=== PATIENT | male | born 1985 | race Caucasian/White ===

== ENCOUNTER 2019-12-21 20:20 | Emergency (ER) | payer OTHER ==
[2019-12-21] MEDS ORDERED: Bacitracin Oint 1 GM U/D Packet TOP ONE (20:22)
[2019-12-21] MEDS ORDERED: Lidocaine 1% 30 ML SDV INJECT ONE (20:22)
[2019-12-21] MEDS ORDERED: Diphtheria,Pertussis(Acell),Tetanus Vaccine 0.5 ML SDV IM ONE (20:25)
--- NOTE | 2019-12-21 20:31 | EDM.PDOC ---
ED HPI GENERAL MEDICAL PROBLEM - General Chief Complaint: Skin Complaint Stated Complaint: HOOK IN FINGER Time Seen by Provider: 12/21/19 20:27 Source of Information: Reports: Patient History Limitations: Reports: No Limitations - History of Present Illness INITIAL COMMENTS - FREE TEXT/NARRATIVE: Treble hook to right hand 30min [employer]. 2 of 3 barbs lateral 2nd metacarpal - Related Data Allergies Allergy/AdvReac Type Severity Reaction Status Date / Time No Known Allergies Allergy Verified 12/21/19 20:25 Home Meds: Home Meds . [No Known Home Meds] 12/21/19 [History] ED ROS GENERAL - Review of Systems Review Of Systems: Comprehensive ROS is negative, except as noted in HPI. ED EXAM, SKIN/RASH Exam: See Below Exam Limited By: Language Barrier General Appearance: Alert, Mild Distress Eye Exam: Bilateral Eye: EOMI Respiratory/Chest: No Respiratory Distress Cardiovascular: Normal Peripheral Pulses Extremities: Other (fish hook embedded right hand) Neurological: Alert, Oriented, Normal Cognition Psychiatric: Normal Affect Skin: Warm, Dry Location, Skin: Upper Extremity, Right (lateral 2nd metacarpal ) Associated features: Tenderness ED SKIN PROCEDURES - Foreign Body Removal Consent Obtained:: Patient Foreign Body Other Location Comment:: lateral 2nd metacarpal 2 of 3 barbs from trebel hook , Wound area cleansed with NS and Hibaclens Barbs pushe trough skin , cut and hooks removed. Tolerated well no complications Anesthesia Type: Local (1% lidocaine 1ml) Complications:: No Course - Vital Signs Last Recorded V/S: Last Vital Signs Temp 98.7 F 12/21/19 20:23 Pulse 72 12/21/19 20:23 Resp 18 12/21/19 20:23 BP 156/96 H 12/21/19 20:23 Pulse Ox 100 12/21/19 20:23 - Orders/Labs/Meds Orders: Active Orders 24 hr Category Date Time Status Vaccines to be Administered [RC] PER UNIT ROUTINE Care 12/21/19 20:26 Active Meds: Medications Discontinued Medications Generic Name Dose Route Start Last Admin Trade Name Freq PRN Reason Stop Dose Admin Bacitracin 1 dose 12/21/19 20:22 12/21/19 20:31 Bacitracin Oint 1 Gm TOP 12/21/19 20:23 1 dose ONETIME ONE Administration Cephalexin 500 mg 12/21/19 20:48 12/21/19 20:51 Keflex PO 12/21/19 20:49 500 mg ONETIME ONE Administration Diphtheria/Tetanus/Acell Pertussis 0.5 ml 12/21/19 20:25 12/21/19 20:30 Adacel IM 12/21/19 20:26 0.5 ml .ONCE ONE Administration Lidocaine HCl 30 ml 12/21/19 20:22 12/21/19 20:31 Xylocaine-Mpf 1% INJECT 12/21/19 20:23 30 ml ONETIME ONE Administration Departure - Departure Time of Disposition: 20:50 Disposition: Home, Self-Care 01 Condition: Good Clinical Impression: Fish hook injury of finger of right hand Qualifiers: Encounter type: initial encounter Qualified Code(s): S69.91XA - Unspecified injury of right wrist, hand and finger(s), initial encounter - Discharge Information *PRESCRIPTION DRUG MONITORING PROGRAM REVIEWED*: No *COPY OF PRESCRIPTION DRUG MONITORING REPORT IN PATIENT ROJAS: No Forms: ED Department Discharge Additional Instructions: Keep clean and dry wash with soap and water at least 3 times daily antibiotic ointment to area twice daily until healed follow up if redness swelling or drainage keflex 500mg one three times daily for one week alternate tylenol 650mg and ibuprofen 600mg every 4 hours as needed for discomfort Sepsis Event Note - Evaluation Sepsis Screening Result: No Definite Risk - Focused Exam Vital Signs: Vital Signs Temp Pulse Resp BP Pulse Ox 12/21/19 20:23 98.7 F 72 18 156/96 H 100 Date Exam was Performed: 12/22/19 Time Exam was Performed: 06:01 - My Orders Last 24 Hours: My Active Orders 12/21/19 20:26 Vaccines to be Administered [RC] PER UNIT ROUTINE - Assessment/Plan Last 24 Hours: My Active Orders 12/21/19 20:26 Vaccines to be Administered [RC] PER UNIT ROUTINE
[2019-12-21] MEDS ORDERED: Cephalexin 500 MG Cap PO ONE (20:48)
== END 2019-12-21 20:54 | disposition home or self-care (01) ==
LOC: DL.ED 20:20
DX: S60.450A Superficial foreign body of right index finger, initial encounter (principal); Z23 Encounter for immunization; W45.8XXA Other foreign body or object entering through skin, initial encounter
CPT/HCPCS: 90471; 90715; 99282; A9270; J2001